=== PATIENT | female | born 1950 | race Caucasian/White ===

== ENCOUNTER → 2023-07-06 12:26 | Outpatient (REF) | payer OTHER, SELFPAY | LOC: DHCBC/DCA 12:26 | PROVIDERS: ATTENDING PHYSICIAN Internal Medicine Interventional Cardiology; FAMILY PHYSICIAN Nurse Practitioner Family | DX: Z01.810 Encounter for preprocedural cardiovascular examination (principal) | CPT/HCPCS: 78452; 93017; A9500; J2785 ==